=== PATIENT | female | born 1960 | race Caucasian/White ===

== ENCOUNTER → 2018-06-06 | Outpatient (CLI) | payer OTHER ==
[~2018-06-06] MED LIST: RXPROACE PO
[2018-06-07 15:06] LABS: HPV 16 Negative (Negative); HPV 18 Negative (Negative); HPV OTHER HR TYPES Negative (Negative)
== END | disposition home or self-care (01) ==
LOC: LAB 13:19 → LAB SHORT 13:19
PROVIDERS: Nurse Practitioner Women's Health
DX: Z12.4 Encounter for screening for malignant neoplasm of cervix (principal); Z91.89 Other specified personal risk factors, not elsewhere classified
CPT/HCPCS: 87624; G0123

== ENCOUNTER → 2022-05-11 | Outpatient (CLI) | payer OTHER | LOC: PLD 12:10 → LAB SHORT 12:10 | DX: D48.5 Neoplasm of uncertain behavior of skin (principal) | CPT/HCPCS: 88305 ==

== ENCOUNTER 2022-06-28 08:25 | Day surgery (SDC) | payer OTHER ==
[~2022-06-28] VITALS: Ht 160 cm; Wt 87.1 kg
[2022-06-28] MEDS ORDERED: Amlodipine Bes2.5 MG (08:39)
[2022-06-28] MEDS ORDERED: OZEMPIC0.25 MG/0. (08:39)
[2022-06-28] MEDS ORDERED: ERGO400 (08:40)
[2022-06-28] MEDS ORDERED: MULVITA (08:40)
[2022-06-28] MEDS ORDERED: PRAV20 (08:40)
[2022-06-28] MEDS ORDERED: Vitamin C100 M1 (08:40)
[2022-06-28] MEDS ORDERED: Mag-Tab Sr84 MG (08:41)
[2022-06-28 10:58] VITALS: BP 141/87
--- NOTE | 2022-06-28 11:00 | NUR ---
06/28/22 1100 Rama Silva IV DC'D CATH INTACT PRESSURE DRESSING APPLIED. PT TOLERATED WELL
== END 2022-06-28 11:00 | disposition home or self-care (01) ==
LOC: ORSCSDS 08:25
PROVIDERS: Surgery
PROC: 0DBM8ZX Excision of Descending Colon, Via Natural or Artificial Opening Endoscopic, Diagnostic (ICD-10-PCS; principal; 2022-06-28 09:45)
DX: Z12.11 Encounter for screening for malignant neoplasm of colon (principal); D12.4 Benign neoplasm of descending colon; E78.5 Hyperlipidemia, unspecified; I10 Essential (primary) hypertension; E11.9 Type 2 diabetes mellitus without complications; E66.9 Obesity, unspecified; Z68.36 Body mass index [BMI] 36.0-36.9, adult; Z79.82 Long term (current) use of aspirin; Z79.84 Long term (current) use of oral hypoglycemic drugs; Z79.899 Other long term (current) drug therapy
CPT/HCPCS: 82947; 88305; J2704; J7120